=== PATIENT | male | born 1965 | race Caucasian/White ===

== ENCOUNTER 2018-08-17 15:27 | Outpatient (CLI) | payer OTHER, SELFPAY ==
[2018-08-17 16:54] LABS: TSH 9.99 uIU/mL (0.358-3.74)
== END 2018-08-17 15:47 ==
PROVIDERS: Family Medicine; PCP Family Medicine; Visit Provider Radiology Radiation Oncology
DX: Z92.3 Personal history of irradiation (principal); C49.0 Malignant neoplasm of connective and soft tissue of head, face and neck
CPT/HCPCS: 36415; 84443

== ENCOUNTER 2019-02-22 15:10 | Outpatient (CLI) | payer OTHER, SELFPAY ==
[2019-02-22 16:55] LABS: TSH 6.79 uIU/mL (0.358-3.74)
== END 2019-02-22 15:30 ==
PROVIDERS: PCP Family Medicine; Visit Provider Radiology Radiation Oncology
DX: R53.83 Other fatigue (principal)
CPT/HCPCS: 36415; 84443

== ENCOUNTER 2019-03-30 08:16 | Outpatient (CLI) | payer OTHER, SELFPAY ==
[2019-03-30 09:04] LABS: Abs Immature Grans 0.01 k/cumm (0.0-0.09); Absolute Basophil Count 0.04 k/cumm (0.0-0.2); Absolute Eosinophil Count 0.11 k/cumm (0.0-0.7); Absolute Lymphocyte Count 1.16 k/cumm (1.2-3.4); Absolute Monocyte Count 0.78 k/cumm (0.11-0.7); Absolute Neutrophil Count 3.92 k/cumm (1.2-6.7); Basophils % 0.7; Eosinophils % 1.8; HCT 45.4 % (40.0-50.0); HGB 15.5 g/dL (13.5-17.5); Immature Grans % 0.2; Lymphocytes % 19.3; Mean Corp. HGB Concentration 34.1 g/dL (32.0-36.0); Mean Corpuscular Hemoglobin 33.4 pg (27.0-33.0); Mean Corpuscular Volume 97.8 fL (80-95); Mean Platelet Volume 9.3 fL (8.0-11.0); Platelet Count 229 x1000/uL (130-400); RBC 4.64 m/cumm (4.50-6.00); RBC Distribution Width 12.1 % (11.8-14.1); White Blood Cell Count 6.02 k/cumm (4.4-10.8)
[2019-03-30 10:41] LABS: ALT 105 U/L (12-78); AST 57 U/L (15-37); Alkaline Phosphatase 93 U/L (46-116); Anion Gap 10.1 mmol/L (3-11); BUN 11 mg/dL (7-18); Bilirubin, Total 0.8 mg/dL (0.2-1.0); CO2 28.9 mmol/L (21.0-32.0); CREATININE 0.87 mg/dL (0.70-1.30); Calcium 8.9 mg/dL (8.5-10.1); Calculated LDL 100 mg/dL; Chloride 101 mmol/L (98-107); Cholesterol 193 mg/dL (50-200); Glucose 93 mg/dL (70-100); HDL Cholesterol 81 mg/dL (40-60); Potassium 4.1 mmol/L (3.5-5.1); Sodium 140 mmol/L (136-145); Total Protein 7.1 g/dL (6.4-8.2); Triglyceride 63 mg/dL (30-150)
== END 2019-03-30 08:36 ==
PROVIDERS: PCP Family Medicine; Visit Provider Family Medicine
DX: I10 Essential (primary) hypertension (principal)
CPT/HCPCS: 36415; 80053; 80061; 83721; 85025

== ENCOUNTER 2021-07-10 01:37 | Outpatient (CLI) | payer OTHER, SELFPAY ==
[2021-07-10 12:41] LABS: HCT 45.3 % (40.0-50.0); HGB 14.8 g/dL (13.5-17.5); MCH 32.3 pg (27.0-33.0); MCHC 32.7 % (32.0-36.0); MCV 98.9 fL (80-95); MPV 9.4 fL (8.0-11.0); Platelet Count 281 10^3/uL (130-400); RBC 4.58 10^6/uL (4.36-5.78); RDW-SD 43.7 fL; WBC 6.73 10^3/uL (4.4-10.8)
[2021-07-11 01:39] LABS: BUN 13 mg/dL (7-18); Calcium 8.9 mg/dL (8.5-10.1); Glucose 92 mg/dL (74-106); Total Protein 7.1 g/dL (6.4-8.2)
[2021-07-11 01:40] LABS: ALT 98 U/L (16-63); AST 67 U/L (15-37); Albumin 3.9 g/dL (3.4-5.0); Alkaline Phosphatase 89 U/L (46-116); Anion Gap 7.1 mmol/L (3-11); Bilirubin, Total 0.7 mg/dL (0.2-1.0); CO2 29.9 mmol/L (21.0-32.0); Chloride 104 mmol/L (98-107); Potassium 4.1 mmol/L (3.5-5.1); Sodium 141 mmol/L (136-145); TSH 4.07 uIU/mL (0.36-3.74)
== END 2021-07-10 01:38 | disposition home or self-care (01) ==
LOC: LOS 01:37
PROVIDERS: PCP Nurse Practitioner Family; Visit Provider Nurse Practitioner Family
DX: I10 Essential (primary) hypertension (principal); F10.10 Alcohol abuse, uncomplicated
CPT/HCPCS: 36415; 80053; 85027; 84443

== ENCOUNTER 2022-08-30 03:17 | Outpatient (CLI) | payer OTHER, SELFPAY ==
[2022-08-30 16:12] LABS: Estimated GFR 88.33 (mL/min/1.73m2); Potassium 4.4 mmol/L (3.5-5.1); TSH (W/Ref FT4) 1.68 uIU/mL (0.36-3.74)
== END 2022-08-30 03:18 | disposition home or self-care (01) ==
LOC: LBO 03:17
PROVIDERS: PCP Nurse Practitioner Family; Visit Provider Nurse Practitioner Family
DX: I10 Essential (primary) hypertension (principal); E03.9 Hypothyroidism, unspecified
CPT/HCPCS: 36415; 82565; 84132; 84443

== ENCOUNTER 2022-10-11 09:11 | Day surgery (SDC) | payer OTHER, SELFPAY ==
--- NOTE | 2022-10-10 16:27 | W.PM.DSUDISC ---
Date of service: 10/11/22 Time of Service: 12:10 Discharge Plan Disposition Patient Disposition: Home Condition: Good Discharge Details Reason For Visit: Colonoscopy Attending Provider: Román Lee Primary Care Provider: Pop Olson Home Meds and New Rx's Prescriptions: Continued lisinopril 40 mg tablet 40 mg PO DAILY Qty: 90 4RF docusate sodium [Colace] 100 mg capsule 100 mg PO DAILY Qty: 90 0RF nifedipine 30 mg tablet extended release 30 mg PO DAILY Qty: 90 3RF levothyroxine 100 mcg tablet 100 mcg PO DAILY Qty: 90 3RF Discontinued peg 3350-electrolytes [Golytely] 236-22.74-6.74 -5.86 gram recon soln 240 ml PO Q10M Qty: 4000 0RF Rx Instructions: until fecal effluent is clear Discharge Instructions Instructions: Colorectal Polyps (GEN) Additional Instructions: Shane, we are able to perform your upper endoscopy (EGD) and lower endoscopy (colonoscopy) today without any difficulty. Your upper endoscopy was totally normal. Your colonoscopy does not show any evidence of problems that would explain the recent changes you have experienced with regards to your bowel habits. I did find 2 small polyps. This is very common. I removed them both. I will notify you when I have the pathology report. 1. If tolerated, consume a soft, low fiber diet for 1-2 days. 2. Do not drive, drink alcohol, operate machinery, make critical decisions, or do activities that require coordination or balance for 24 hours. 3. Because air was put into your colon during the procedure, expelling air from your rectum (passing gas or farting) is normal. 4. You may not have a bowel movement for 1-3 days because of the colonoscopy prep. This is normal. 5. Go directly to the emergency room if you notice any of the following: Develop chills (warm to touch), or if you have a thermometer and your temperature is above 101 Difficulty breathing or difficultly swallowing Persistent vomiting Severe abdominal pain, other than gas cramps Severe chest pain Black, tarry stools Any bleeding ? exceeding one tablespoon 6. Call your physician if the site where your intravenous was started becomes red, swollen, painful, and warm to touch. 7. Your physician has reviewed your pre-procedure medications. Please continue to take those medications as previously ordered. You will be given specific information/education regarding any changes to your medications before leaving. Stand Alone Forms: Kieran Ray (DSU) Activity:: Activity as Tolerated Diet:: As Tolerated Discharge Orders Discharge Orders: Discharge Order (Routine); Ordered 10/10/22 Ordered By: Román Lee DS: Diagnosis Discharge Diagnosis (1) Change in bowel movement: Status: Acute Asessment and Plan: I did not find any explanation for change in the character or frequency of bowel movements. I did remove 2 polyps and we will follow-up on the pathology from the polypectomy report
--- NOTE | 2022-10-10 16:28 | COLE_ITS ---
Date of service: 10/11/22 Time of Service: 12:12 Colonoscopy Report Date of procedure: 10/11/22 Pre-op diagnosis general: Screening colonoscopy Post-op diagnosis procedure note: other (Colon polyps) Procedure: EGD and colonoscopy with polypectomy Surgeon: Román Lee Anesthesia Type: General:No Airway Estimated blood loss (mL): 10 Pathology: other (2 colon polyps from 85 cm) Complications: None Disposition: same day Indications: Justin is a 57-year-old male who is due for a screening colonoscopy. Incidentally, he is described a recent change in the character and timing of his bowel frequency. Prep: Miralax/Dulcolax Procedure Start Time: 11:08 Procedure End Time: 11:33 Retraction Time: 12 Findings: Normal EGD, 2 colon polyps at 85 cm Procedure Description: After the initiation of monitored anesthetic care, and with the assistance of a bite block, I advanced a standard gastroscope through the mouth past the hypopharynx and into the esophagus.? Under the direct vision of the scope, I advanced down the esophagus into the stomach.? Once I entered the stomach, I performed a brief inspection, followed by retroflexion towards the gastric cardia.? This appeared normal.? After that, I gently advanced the scope around t he incisura angularis and examined the pylorus.? This also appeared normal.? Next, I advanced the scope through the pylorus into the duodenum.? The mucosa was pink and healthy appearing.? There were no abnormalities.? I was able to visualize bile draining into the duodenum through the ampulla Vater. ?Next, I began retracting the endoscope.? Again, I returned to the stomach which was carefully examined once again.? I then gently desufflated some of the stomach, and withdrew the endoscope into the distal esophagus. The GE junction and Z- line were normal-appearing. ?Finally, I withdrew the scope along the length of the esophagus taking great care to examine the entirety of the mucosa.? I did not appreciate any abnormalities. Next, we rolled needle into the left lateral decubitus position, I began by performing an external anorectal exam.? Perineum and skin were normal, as was the anal verge.? There was no evidence of external hemorrhoids.? Next, I performed a digital rectal exam.? I did not appreciate any abnormal findings.? Next, I advanced a colonoscope into the rectal vault.? I performed retroflexion.? This was normal.? Using insufflation, I then advanced the colonoscope beyond the rectal folds and into the sigmoid colon before advancing towards the cecum.? The quality of the prep was adequate.? The scope was noted to be in the cecum by identification of the ileocecal valve and appendiceal orifice.? I then began withdrawing the colonoscope using repeated irrigation as necessary for full evaluation of the colonic mucosa. Around 85 cm from the anal verge I identified 2 sessile polyps. Both were less than 0.5 cm.?I was able to remove these with a cold forcep polypectomy. ?I examined the sites, and there was minimal bleeding. ?Once this was completed, I continued to withdraw the scope and examine the remainder of the colonic mucosa.?Once the scope was withdrawn to the level of the rectum, great care was taken to examine portions of the rectal folds.? Finally, the scope was withdrawn and the patient was brought to the same-day surgery recovery unit as the anesthetic wore off. ?The findings and instructions were shared with the patient prior to discharge.
[2022-10-11 09:15] VITALS: BP 142/99; PULSE 105; RESP 18; TEMP 36.7; O2SAT 97
[2022-10-11] MEDS: Lactated Ringers 1,000 ML 80 ML IV (09:52)
--- NOTE | 2022-10-11 10:09 | W.ANESPRE ---
General Info Date of Service Date Performed: 10/11/22 Height: 6 ft 2 in Weight: 101.5 kg Body Mass Index (BMI): 28.7 Surgical Procedure: Operation Date: 10/11/22 11:20 Proposed Procedure Side Surgeon p Colonoscopy/Gastroscopy Román Lee MD Meds Allergies and Home Medications Allergies Allergy/AdvReac Type Severity Reaction Status Date / Time No Known Allergies Allergy Unverified 10/11/22 09:32 Home Medication Medication Instructions Recorded nifedipine 30 mg tablet,extended 30 mg PO DAILY #90 tabs 07/10/22 release docusate sodium 100 mg capsule 100 mg PO DAILY #90 caps 09/11/22 (Colace) lisinopril 40 mg tablet 40 mg PO DAILY #90 tabs 09/11/22 levothyroxine 100 mcg tablet 100 mcg PO DAILY #90 tabs 09/25/22 Current Visit Medications: Current Medications Generic Name Dose Route Start Last Admin Trade Name Freq PRN Reason Stop Dose Admin Hyoscyamine Sulfate 0.125 mg 10/10/22 16:30 Hyoscyamine 0.125 Mg Sl/Oral/Chew SL DIRECTED PRN Ringer's Solution 1,000 mls @ 80 mls/hr 10/11/22 06:00 10/11/22 09:52 IV 11/09/22 23:59 80 mls/hr INFUSION ADALBERTO Administration IV Miscellaneous Supplies 1 each 10/11/22 06:00 Iv Access IV 11/09/22 23:59 DIRECTED ADALBERTO Ondansetron HCl 4 mg 10/10/22 16:30 Ondansetron 4 Mg/2 Ml Vial IVP Q4H PRN PRN Nausea / Vomiting Sodium Chloride 0 ml 10/11/22 06:00 Normal Saline Flush 10 Ml Syr IV 11/09/22 23:59 PRN PRN Sodium Chloride 0 ml 10/11/22 06:00 Normal Saline 10 Ml Vial IJ 11/09/22 23:59 DIRECTED PRN Sterile Water 0 ml 10/11/22 06:00 Water,Injection,Sterile 10 Ml Vial IJ 11/09/22 23:59 DIRECTED PRN PFSH Active Problems Active Problems: Problem Status Onset Code Change in bowel movement R19.8 Bloating R14.0 Alcohol intake above recommended sensible limits 03/09/13 Z72.89 Essential hypertension 10/14/13 I10 Smoker 01/27/13 F17.200 Squamous cell carcinoma of skin 01/27/13 C44.92 Hypothyroidism E03.9 Medical History Medical History History of head and neck radiation Surgical History Surgical History History of radical neck surgery RADICAL NECK DISSECTION AND RADIATION THERAPY, T1,N1 Skin Cancer Removal RECURRENCE-EAR Tobacco Smoking/Tobacco Use Status: Current every day Tobacco Type: cigarettes Years smoked: 40 Alcohol Alcohol Intake: current Alcohol intake frequency: a few times a week Alcohol type: beer and hard liquor Substance Use Substance use: Never Substance use type: does not use Vital Signs and Lab Results Vital Signs Most Recent Vital Signs in EMR: Most Recent Vital Signs Temp Pulse Resp BP Pulse Ox 36.7 C 105 H 18 142/99 H 97 10/11/22 09:15 10/11/22 09:15 10/11/22 09:15 10/11/22 09:15 10/11/22 09:15 Lab Results Blood Type / Crossmatch: No Data to Display Complete Blood Count: No Data to Display Complete Metabolic Panel: No Data to Display Liver Function Panel: No Data to Display Coagulation Panel: No Data to Display Cardiac Panel: No Data to Display Arterial Blood Gas: No Data to Display Venous Blood Gas: No Data to Display Pancreas Panel: No Data to Display Thyroid Panel: No Data to Display Infectious Disease: No Data to Display Blood Cultures: No Data to Display Toxicology Panel: No Data to Display Anesthesia Assessment and Plan Anesthesia History Personal History: No History of Anesthesia Complications Family History: No Family History of Anesthesia Complications Exercise Tolerance Exercise Tolerance: Metabolic Equivalents>4 Pertinent Negatives Pertinent Negatives: No Symptoms of GERD, No Major Cardiovascular Symptoms or Complaints, No Major Pulmonary Symptoms or Complaints and No History of CVA/TIA Cardiac & Pulmonary Exam Cardiac Exam: Normal S1/S2 Heart Sounds Pulmonary Exam: Clear Bilateral Breath Sounds Implantable Cardiac Device Does patient have a Pacemaker or an ICD?: No Airway Exam Known Difficult Airway: No Mallampati Class: 2 Mouth Opening: Normal (> 3cm) Thyromental Distance: Greater than 3 cm Neck Range of Motion: Full ROM Neck Circumference: Normal Teeth Condition: Normal Dentition (lower left molar broken per patient ) Airway Comments: Neck radiation and neck flap ASA Classification ASA Score: ASA 2 Emergency Case?: No NPO Status NPO Status: NPO Clears >2 hours, Solids >8 hours Anesthesia Plan Resuscitation Status: Full Code Anesthesia Technique: General Anesthesia Airway Planned: Natural Airway Monitors Used: Standard Monitors
[2022-10-11 10:10] VITALS: BMI 28.7
--- NOTE | 2022-10-11 11:25 | BOWEL_PTH ---
PATIENT: Justin Lubin LOC: [facility] U#:[id number] AGE/SX: 57/M ROOM: RE10/11/[address]: Román Lee MD : [id number] BED: DIS: 10/11/2022 SPEC #: [id number] RECD: 10/11/22 12:48 STATUS: LANA REQ #: [id number] BLUE: 10/11/22 11:[address]: Román Lee DEPT: Surgical Specimen RECD BY: Christy Mccain ENTERED: 10/11/22 12:48 SP TYPE: Bowel OTHR DR: Pop Olson, MICHAEL Tissues: 1 - BIOPSY BOWEL Procedures: GROSS AND MICRO LEVEL 4 Comments: [id number]
[2022-10-11 11:40] VITALS: BP 100/74; PULSE 62; RESP 16; TEMP 36.6; O2SAT 98
--- NOTE | 2022-10-11 11:47 | W.ANESPOSTOP ---
Postoperative Evaluation Date, Time and Location Date Performed: 10/11/22 Time Performed: 11:47 Patient Location: Day Surgery Unit Vital Signs Most Recent Imported Vital Signs: Most Recent Vital Signs Temp Pulse Resp BP Pulse Ox 36.6 C 62 16 100/74 98 10/11/22 11:40 10/11/22 11:40 10/11/22 11:40 10/11/22 11:40 10/11/22 11:40 Pain Score Most Recent Pain Score: Most Recent Pain Score Pain Level 0 10/11/22 11:40 Assessment Mental Status: Awake (Alert & Oriented to Patient Baseline) Airway and Respiratory Function: Patent airway with normal (patient baseline) respiratory exam Cardiovascular Function: Hemodynamically Stable Hydration Status: Adequately Hydrated Nausea & Vomiting: No Nausea or Vomiting Pain: Pt. Denies Any Pain Peripheral Nerve Block: Patient did not receive a nerve block
[2022-10-11 12:05] VITALS: BP 125/89; PULSE 58; RESP 16; TEMP 36.6; O2SAT 98
== END 2022-10-11 12:17 | disposition home or self-care (01) ==
PROVIDERS: PCP Nurse Practitioner Family; Visit Provider Surgery
PROC: (CPT 45380; principal; 2022-10-11 11:15)
DX: Z12.11 Encounter for screening for malignant neoplasm of colon (principal); K63.5 Polyp of colon; R14.0 Abdominal distension (gaseous)
CPT/HCPCS: 45380; 43235; 88305; J2704

== ENCOUNTER 2025-03-29 07:18 | Outpatient (CLI) | payer OTHER, SELFPAY ==
[2025-03-29 07:57] LABS: ALT 46 U/L (16-63); AST 24 U/L (15-37); Albumin 3.7 g/dL (3.4-5.0); Alkaline Phosphatase 90 U/L (46-116); Anion Gap 8.3 mmol/L (3-11); BUN 14 mg/dL (7-18); Bilirubin, Total 0.8 mg/dL (0.2-1.0); CO2 28.7 mmol/L (21.0-32.0); Calcium 9.1 mg/dL (8.5-10.1); Calculated LDL 97 mg/dL (<100); Chloride 103 mmol/L (98-107); Cholesterol 187 mg/dL (<200); Estimated GFR 99.00 (mL/min/1.73m2); Glucose 110 mg/dL (74-106); HDL Cholesterol 60 mg/dL (>or=40); Potassium 4.2 mmol/L (3.5-5.1); Sodium 140 mmol/L (136-145); TSH (W/Ref FT4) 2.60 uIU/mL (0.36-3.74); Total Protein 7.2 g/dL (6.4-8.2); Triglyceride 151 mg/dL (<150)
[2025-03-29 08:05] LABS: Hemoglobin A1C 5.2 % (<5.7)
[2025-03-29 21:22] LABS: PSA, Screening 0.2 ng/mL (<=3.5)
== END 2025-03-29 07:19 | disposition home or self-care (01) ==
LOC: LBO 07:19
PROVIDERS: PCP Nurse Practitioner Family; Visit Provider Nurse Practitioner Family
DX: E03.9 Hypothyroidism, unspecified (principal); Z13.1 Encounter for screening for diabetes mellitus; Z13.220 Encounter for screening for lipoid disorders; Z12.5 Encounter for screening for malignant neoplasm of prostate; I10 Essential (primary) hypertension
CPT/HCPCS: 36415; 80053; 80061; 84153; 83036; 84443

== ENCOUNTER 2025-04-20 19:45 | Outpatient (REF) | payer OTHER, SELFPAY ==
[2025-04-20 20:40] LABS: Abs Immature Grans 0.03 10^3/uL (0.0-0.06); HCT 43.3 % (40.0-50.0); HGB 14.6 g/dL (13.5-17.5); Immature Grans % 0.3 %; MCH 32.5 pg (27.0-33.0); MCHC 33.7 % (32.0-36.0); MCV 96 fL (80-95); MPV 10.2 fL (8.0-11.0); Platelet Count 315 10^3/uL (130-400); RBC 4.49 10^6/uL (4.36-5.78); RDW 11.6 % (11.8-14.1); RDW-SD 41.1 fL; WBC 8.80 10^3/uL (4.4-10.8)
[2025-04-20 20:59] LABS: ALT 55 U/L (16-63); AST 41 U/L (15-37); Albumin 4.0 g/dL (3.4-5.0); Alkaline Phosphatase 93 U/L (46-116); Anion Gap 10.8 mmol/L (3-11); BUN 22 mg/dL (7-18); Bilirubin, Total 0.7 mg/dL (0.2-1.0); CO2 25.2 mmol/L (21.0-32.0); Calcium 9.4 mg/dL (8.5-10.1); Chloride 103 mmol/L (98-107); Estimated GFR 87.24 (mL/min/1.73m2); Glucose 107 mg/dL (74-106); Potassium 4.6 mmol/L (3.5-5.1); Sodium 139 mmol/L (136-145); TSH (W/Ref FT4) 3.64 uIU/mL (0.36-3.74); Total Protein 7.3 g/dL (6.4-8.2)
[2025-04-22 11:35] LABS: Lyme Ab w Rflx to Lyme Confirm Negative (Negative)
[2025-04-23 23:57] LABS: B. miyamotoi PCR Negative (Negative); Babesia divergens/MO-1 Negative (Negative); Ehrlichia muris eauclairensis Negative (Negative)
== END 2025-04-20 19:46 | disposition home or self-care (01) ==
LOC: LBN 19:45
PROVIDERS: PCP Nurse Practitioner Family; Visit Provider Nurse Practitioner Family
DX: I10 Essential (primary) hypertension (principal); M79.10 Myalgia, unspecified site; E03.9 Hypothyroidism, unspecified; R19.7 Diarrhea, unspecified
CPT/HCPCS: 80053; 87798; 84443; 85025; 86618